=== PATIENT | male | born 1985 | race Two or more races ===

== ENCOUNTER 2017-05-01 16:31 | Emergency (ER) | payer OTHER ==
[~2017-05-01] VITALS: Ht 177.8 cm; Wt 90.7 kg
[2017-05-01] MEDS ORDERED: ONDANSETRON HCL 4 MG/2 ML VIAL ONE (16:51)
[2017-05-01] MEDS ORDERED: MORPHINE SULF INJ 2 MG/ML SYRINGE 1ML IV ONE ×4 (17:00→22:45)
[2017-05-01] MEDS ORDERED: ONDANSETRON HCL 4 MG/2 ML VIAL IV ONE (17:00)
[2017-05-01 18:57] LABS: Basophils # (auto) 0 uL; Basophils % (auto) 0.2 % (0.0-2.0); Eosinophils # (auto) 0 uL; Eosinophils % (auto) 0.2 % (0.0-7.0); Hematocrit 44.1 % (41.0-53.0); Hemoglobin 15.1 g/dL (13.5-17.5); Lymphocytes # (auto) 1.6 uL; Lymphocytes % (auto) 7.6 % (10.0-50.0); Mean Corpuscular Hemoglobin 28.4 pg (28.0-32.0); Mean Corpuscular Hgb Conc. 34.2 g/dL (32.0-36.0); Mean Corpuscular Volume 83.3 fL (80.0-100.0); Mean Platelet Volume 8.3 fL (6.9-10.8); Neutrophils # (auto) 17.8 uL; Platelet Count (auto) 245 10^3/uL (140-450); Red Cell Distribution Width 13.1 % (11.8-14.3); White Blood Cell 20.5 10^3/uL (4.4-10.8)
[2017-05-01 19:09] LABS: INR 0.96 (0.9-1.15); Partial Thromboplastin Time 25.9 sec (22.64-33.71); Prothrombin Time 10.5 sec (9.37-12.3)
[2017-05-01 19:10] LABS: Albumin 3.7 g/dL (3.4-5.0); Calcium 8.9 mg/dL (8.5-10.1); Potassium 4.3 mmol/L (3.5-5.1)
[2017-05-01 19:13] LABS: BUN/Creatinine Ratio 9.9
[2017-05-01 19:16] LABS: Bilirubin, Total 0.3 mg/dL (0.2-1.0); Total Protein 7.2 g/dL (6.4-8.2)
[2017-05-01] MEDS ORDERED: IOHEXOL 300 MG/ML 100ML BOTTLE IJ ONE (19:23)
[2017-05-01] MEDS ORDERED: LIDOCAINE 1% HCL (LOCAL ANESTH.) INJ 20ML MDV ONE (21:45)
[2017-05-01 22:01] VITALS: BP 114/64
== END 2017-05-01 22:05 | disposition short-term general hospital (02) ==
LOC: ER 16:31
DX: S32.010A Wedge compression fracture of first lumbar vertebra, initial encounter for closed fracture (principal); S01.112A Laceration without foreign body of left eyelid and periocular area, initial encounter; S16.1XXA Strain of muscle, fascia and tendon at neck level, initial encounter; R10.12 Left upper quadrant pain; V43.52XA Car driver injured in collision with other type car in traffic accident, initial encounter; Y93.89 Activity, other specified; Y92.89 Other specified places as the place of occurrence of the external cause; Y99.8 Other external cause status
CPT/HCPCS: 12013; 36415; 70450; 71260; 72125; 72131; 74177; 80053; 85025; 85610; 85730; 96374; 96375; 96376; 99285; J2001; J2270; J2405; Q9967